=== PATIENT | female | born 1995 | race Caucasian/White ===

== ENCOUNTER 2021-09-07 13:37 | Outpatient (CLI) | payer OTHER ==
[~2021-09-07 13:37] MED LIST: Iopamidol 300 61% 50 ML VIAL FS ONE
== END 2021-09-07 13:38 | disposition home or self-care (01) ==
LOC: CSHRAD 13:37
PROVIDERS: ATTEND Obstetrics & Gynecology
DX: Z31.9 Encounter for procreative management, unspecified (principal)
CPT/HCPCS: 58340; 74740; Q9967